=== PATIENT | male | born 1950 | race Hispanic/Latino ===

== ENCOUNTER 2018-09-22 07:09 | Day surgery (SDC) | payer MEDICARE, OTHER ==
[~2018-09-22 07:09] MED LIST: ANCEF/STERILE WATER 2 GM/20 ML 2 GM/20 ML SYRINGE IV NR; NACL 0.9% 1000 ML 1,000 ML IV SCH
[2018-09-22 07:44] LABS: Hemoglobin 11.7 gm/dl (11.8-15.2); Mean Corpuscular HGB Conc 34 % (32-34); Mean Corpuscular Volume 83 fl (84-94); Platelet Count 256 K/mm3 (140-440); Red Blood Count 4.19 M/mm3 (3.65-5.03); Red Cell Distribution Width 14.8 % (13.2-15.2)
[2018-09-22 07:55] LABS: INR 1.05 (0.87-1.13)
[2018-09-22 07:56] LABS: Partial Thromboplastin Time 30.9 Sec. (24.2-36.6)
[2018-09-22] MEDS ORDERED: NACL 0.9% 500 ML 500 ML IV SCH (08:00)
[2018-09-22 08:08] LABS: Calcium 8.9 mg/dL (8.4-10.2)
[2018-09-22] MEDS ORDERED: VERSED ONE (08:29)
[2018-09-22] MEDS ORDERED: SUBLIMAZE ONE (08:30)
[2018-09-22] MEDS ORDERED: NACL 0.9% 250ML 0 ML ONE (08:31)
[2018-09-22] MEDS ORDERED: XYLOCAINE 2% INFILTRATI ONE (08:31)
[2018-09-22] MEDS ORDERED: NACL 0.9% 500 ML IR ONE (08:31)
[2018-09-22] MEDS ORDERED: LEVAQUIN 500MG/100ML 500 MG/100 ML BAG IV ONE (08:31)
[2018-09-22] MEDS ORDERED: LEVAQUIN 500MG/100ML 500 MG/100 ML BAG IV NR (09:00)
[2018-09-22] MEDS ORDERED: XYLOCAINE 1%/ EPI 1:100,000 INFILTRATI ONE (09:44)
--- NOTE | 2018-09-22 09:54 | Short Stay Summary ---
Short Stay Documentation Date of service: 09/22/18 Narrative H&P: 67-year-old male with rectal cancer and permanent left-sided nephrostomy tube with failed right lower quadrant ostomy diversion and right nephrectomy who presents for nephrostomy exchange - History Principal diagnosis: nephrostomy exchange, hydronephrosis Past Medical History: cancer Past Surgical History: bowel surgery, Other (right nephrectomy, cancer surgery) Social history: no significant social history - Allergies and Medications Current Medications: Allergies No Known Allergies Allergy (Verified 05/11/18 10:05) Home Medications Medication Instructions Recorded Confirmed Last Taken Type Amlodipine Besylate [Norvasc] 5 mg PO QDAY 09/22/18 09/22/18 09/21/18 History Nitrofurantoin Macrocrystal 25 mg PO BID 09/22/18 09/22/18 09/21/18 History [Nitrofurantoin] Active Medications Sodium Chloride (Nacl 0.9% 500 Ml) 500 mls @ 50 mls/hr IV DIRECT GRACE Last Admin: 09/22/18 08:40 Dose: 50 mls/hr Documented by: Levofloxacin/Dextrose (Levaquin 500mg/100ml) 500 mg in 100 mls @ 100 mls/hr IV PREOP NR; Protocol Stop: 09/22/18 09:59 Last Admin: 09/22/18 08:43 Dose: 100 mls/hr Documented by: - Physical exam General appearance: no acute distress Lungs: Normal air movement Gastrointestinal: normal - Brief post op/procedure progress note Date of procedure: 09/22/18 Pre-op diagnosis: hydronephrosis requiring nephrostomy exchange Post-op diagnosis: same Procedure: 8 Sami left nephrostomy exchange with nephrostogram Anesthesia: local (with conscious sedation) Surgeon: LUZ ELENA SCHULTZ Estimated blood loss: minimal Condition: stable - Hospital course Hospital course: Ready for discharge - Disposition Condition at discharge: Stable Disposition: DC-01 TO HOME OR SELFCARE - Discharge Diagnoses (1) Hydronephrosis Status: Acute Short Stay Discharge Plan Activity: advance as tolerated Weight Bearing Status: Weight Bear as Tolerated Diet: regular Wound: keep clean and dry Additional Instructions: Nephrostomy changes every 3-4 months Follow up with: MIRIAM RODNEY MD [Primary Care Provider] - 7 Days
--- NOTE | 2018-09-22 09:57 | Operative Report ---
Operative Report Operative Report: EXAM: 1. Nephrostogram through the indwelling left nephrostomy tube. 2. Left 8 Swiss nephrostomy tube exchange DATE: 09/22/18 DRILL RIG OPERATOR HELPER: LUZ ELENA SCHULTZ MD INDICATION: Rectal cancer and ureteral involvement with permanent left-sided nephrostomy tube with failed ostomy and right nephrectomy. MEDICATIONS: Please see nursing report for full details. DEVICES: 8 Swiss nephrostomy tube CONTRAST: Heddler report for full details. PROCEDURE: The risks, benefits, and alternatives were discussed with the patient; written informed consent was obtained. The patient was brought to the angiography suite in satisfactory condition. The patient was placed in a prone position. The tubes were prepped and draped in a sterile fashion. The left nephrostomy tube was evaluated and determined to be intact. There is mild erythema around the tube. 1% lidocaine was injected around the nephrostomy tube for local anesthetic. Contrast was injected through the existing nephrostomy tube confirming position. The nephrostomy tube was cut. 0.035 inch Styles wire could not be passed to the nephrostomy tube. 0.035 inch Glidewire was passed into the renal collecting system. The nephrostomy tube was removed over a wire. A new nephrostomy tube was advanced over the wire into the collecting system. The wire and plastic stiffener were removed under fluoroscopic guidance. [place] loop was formed in the renal pelvis. Contrast was injected confirming position in the renal pelvis. Contrast was then aspirated and saline was injected and aspirated through the collecting system. The catheter was secured with a 2-0 Ethilon. Sterile dressing was applied. The patient tolerated the procedure without issue. The patient was transferred to the OPPU area without issue. FINDINGS: 1. The left sided nephrostogram demonstrated moderate hydronephrosis and hydroureter with the ureter at its mid to distal portion connecting into a curvilinear tubular structure which I suspect is the bowel/ostomy which is nonfunctional. I did not inject hard enough to completely opacified this structure as the patient ready told me his ostomy was nonfunctional. 2. Successful fluoroscopic guided exchange of a left sided 8 Swiss nephrostomy tube. IMPRESSION: Successful nephrostogram and nephrostomy tube exchange of a left sided 8 macedonian nephrostomy tube.
[2018-09-22 11:03] VITALS: BP 138/72
== END 2018-09-22 11:23 | disposition home or self-care (01) ==
LOC: CATHLABREC 07:09
PROVIDERS: ATTEND Radiology Diagnostic Radiology
DX: N13.30 Unspecified hydronephrosis (principal); C20 Malignant neoplasm of rectum; I10 Essential (primary) hypertension; E78.00 Pure hypercholesterolemia, unspecified; Z85.46 Personal history of malignant neoplasm of prostate; Z87.440 Personal history of urinary (tract) infections; Z79.899 Other long term (current) drug therapy; Z79.01 Long term (current) use of anticoagulants; Z87.891 Personal history of nicotine dependence; Z98.890 Other specified postprocedural states; Z80.8 Family history of malignant neoplasm of other organs or systems; Z86.2 Personal history of diseases of the blood and blood-forming organs and certain disorders involving the immune mechanism
CPT/HCPCS: 36415; 50435; 80048; 85027; 85610; 85730; 96365; 99156; 99157; C1729; C1769; J1956; J2250; J3010; J7040; J7050; Q9967

== ENCOUNTER 2019-01-18 06:21 | Day surgery (SDC) | payer MEDICARE, OTHER ==
[2019-01-18 07:00] LABS: Basophils % (Auto) 0.4 % (0.0-1.8); Eosinophils # (Auto) 0.2 K/mm3 (0.0-0.4); Eosinophils % (Auto) 2.8 % (0.0-4.3); Hematocrit 37.4 % (35.5-45.6); Hemoglobin 12.7 gm/dl (11.8-15.2); Lymphocytes # (Auto) 1.4 K/mm3 (1.2-5.4); Lymphocytes % (Auto) 20.1 % (13.4-35.0); Mean Corpuscular HGB Conc 34 % (32-34); Mean Corpuscular Volume 85 fl (84-94); Monocytes # (Auto) 0.6 K/mm3 (0.0-0.8); Monocytes % (Auto) 8.8 % (0.0-7.3); Platelet Count 264 K/mm3 (140-440); Red Blood Count 4.41 M/mm3 (3.65-5.03); Red Cell Distribution Width 13.9 % (13.2-15.2)
[2019-01-18] MEDS ORDERED: NACL 0.9% 500 ML 500 ML IV SCH (07:00)
[2019-01-18 07:10] LABS: INR 1.16 (0.87-1.13); Partial Thromboplastin Time 26.8 Sec. (24.2-36.6)
[2019-01-18 07:36] LABS: Calcium 9.1 mg/dL (8.4-10.2)
--- NOTE | 2019-01-18 08:06 | Short Stay Summary ---
Short Stay Documentation Date of service: 01/18/19 - History Principal diagnosis: left hydronephrosis Past Medical History: cancer (bladder), other Past Surgical History: Other (extensive bladder resections) Social history: no significant social history - Allergies and Medications Current Medications: Allergies No Known Allergies Allergy (Verified 05/11/18 10:05) Home Medications Medication Instructions Recorded Confirmed Last Taken Type Cholecalciferol Vit D3 [Vitamin D3 1,000 unit PO QDAY 01/18/19 01/18/19 01/17/19 History 1,000 UNIT TAB] Lactobacillus Combo No.10 1 each PO BID 01/18/19 01/18/19 01/17/19 History [Probiotic] amLODIPine [Norvasc] 5 mg PO DAILY 01/18/19 01/18/19 01/18/19 05:00 History Active Medications Sodium Chloride (Nacl 0.9% 500 Ml) 500 mls @ 50 mls/hr IV DIRECT GRACE Last Admin: 01/18/19 07:18 Dose: 50 mls/hr Documented by: - Physical exam General appearance: no acute distress Integumentary: no rash, no growths HEENT: Atraumatic Lungs: Normal air movement Breasts: deferred Heart: Regular rate Gastrointestinal: normal Male Genitourinary: deferred Rectal Exam: deferred Extremities: no ischemia Neurological: Normal gait, Normal speech - Brief post op/procedure progress note Date of procedure: 01/18/19 Pre-op diagnosis: left hydronephrosis Post-op diagnosis: same Procedure: Left nephrostogram, left nephrostomy tube exchange Anesthesia: local Surgeon: LUZ ELENA SWEENEY Estimated blood loss: none Pathology: none Condition: stable - Disposition Condition at discharge: Good Disposition: DC-01 TO HOME OR SELFCARE Short Stay Discharge Plan Activity: advance as tolerated Weight Bearing Status: Weight Bear as Tolerated Diet: regular Wound: keep clean and dry, per your surgeon's advice Follow up with: MIRIAM RODNEY MD [Primary Care Provider] - 7 Days
[2019-01-18] MEDS ORDERED: XYLOCAINE 2% INFILTRATI ONE (08:17)
[2019-01-18] MEDS ORDERED: VERSED ONE (08:17)
[2019-01-18] MEDS ORDERED: NACL 0.9% 500 ML IR ONE (08:17)
[2019-01-18] MEDS ORDERED: SUBLIMAZE ONE (08:17)
[2019-01-18] MEDS ORDERED: LEVAQUIN 500MG/100ML 500 MG/100 ML BAG IV ONE (08:18)
--- NOTE | 2019-01-18 09:13 | Operative Report ---
Operative Report Operative Report: Exam: Left-sided nephrostogram, left nephrostomy tube exchange with fluoroscopic guidance Clinical indication: Left hydronephrosis with chronic indwelling left nephrostomy tube Date: 01/18/2019 Procedure: Following an explanation of the risks, benefits and alternatives; written informed consent was obtained. The patient was brought to the angiographic's suite and placed in prone position on the examination table. Initial fluoroscopic images demonstrated appropriate positioning of the patient's indwelling nephrostomy tube. The patient's left back and flank were prepped and draped in the usual sterile fashion. 1% lidocaine was used for anesthesia at the catheter exit site along the tract. Contrast was injected through the indwelling nephrostomy tube. There is been minimal retraction from the renal pelvis with prompt filling of the pelvis and calyces. Minimal hydronephrosis is identified. The fluoroscopy tube was cut to release the pigtail. A 0.035 guidewire was then advanced through the catheter and coiled within the renal pelvis. The catheter was then removed intact. A new 8 Danish ostomy tube was then advanced over the guidewire under fluoroscopy to position the pigtail in the central aspect of the renal pelvis. The guidewire and trocar were removed and the pigtail formed. Contrast was gently injected to document appropriate positioning. The catheter was securely fastened to the skin surface using 2-0 Ethilon suture and a Stayfix device. The catheter was then placed to dependent drainage. Sterile dressings were applied. The patient tolerated the procedure well. There were no immediate post procedure complications. Conscious sedation was performed under the guidance of radiologic nursing. Continuous cardiopulmonary monitoring was utilized. Impression: 1) Left-sided nephrostogram demonstrating minimal left hydronephrosis and appropriate positioning of indwellingnephrostomy tube 2) Fluoroscopic guided exchange of left nephrostomy tube.
[2019-01-18 10:25] VITALS: BP 127/89
== END 2019-01-18 10:00 | disposition home or self-care (01) ==
LOC: CATHLABREC 06:21
PROVIDERS: ATTEND Radiology Diagnostic Radiology
DX: N13.39 Other hydronephrosis (principal); T83.092A Other mechanical complication of nephrostomy catheter, initial encounter; E78.00 Pure hypercholesterolemia, unspecified; I10 Essential (primary) hypertension; Z87.440 Personal history of urinary (tract) infections; Z98.890 Other specified postprocedural states; Z85.51 Personal history of malignant neoplasm of bladder; Z79.899 Other long term (current) drug therapy; Z87.891 Personal history of nicotine dependence; Z86.2 Personal history of diseases of the blood and blood-forming organs and certain disorders involving the immune mechanism; Y83.8 Other surgical procedures as the cause of abnormal reaction of the patient, or of later complication, without mention of misadventure at the time of the procedure; Y92.89 Other specified places as the place of occurrence of the external cause
CPT/HCPCS: 36415; 50435; 80048; 85025; 85610; 85730; 99156; C1729; C1769; J1956; J2250; J3010; J7040; 50432; Q9967

== ENCOUNTER 2019-05-16 06:52 | Day surgery (SDC) | payer MEDICARE, OTHER ==
[2019-05-16] MEDS ORDERED: NACL 0.9% 500 ML 500 ML IV SCH (08:00)
[2019-05-16 08:06] LABS: Basophils % (Auto) 0.6 % (0.0-1.8); Eosinophils # (Auto) 0.2 K/mm3 (0.0-0.4); Hematocrit 38.4 % (35.5-45.6); Hemoglobin 12.7 gm/dl (11.8-15.2); Lymphocytes # (Auto) 1.1 K/mm3 (1.2-5.4); Lymphocytes % (Auto) 21.9 % (13.4-35.0); Mean Corpuscular HGB Conc 33 % (32-34); Mean Corpuscular Volume 87 fl (84-94); Monocytes # (Auto) 0.6 K/mm3 (0.0-0.8); Monocytes % (Auto) 11.2 % (0.0-7.3); Platelet Count 228 K/mm3 (140-440); Red Blood Count 4.42 M/mm3 (3.65-5.03); Red Cell Distribution Width 14.2 % (13.2-15.2)
[2019-05-16 08:17] LABS: INR 1.19 (0.87-1.13)
[2019-05-16 08:31] LABS: Partial Thromboplastin Time 29.7 Sec. (24.2-36.6)
[2019-05-16] MEDS ORDERED: NACL 0.9% 500 ML IR ONE (08:33)
[2019-05-16] MEDS ORDERED: NACL 0.9% 250ML 0 ML ONE (08:34)
[2019-05-16] MEDS ORDERED: ANCEF/STERILE WATER 2 GM/20 ML 2 GM/20 ML SYRINGE IV ONE (08:34)
[2019-05-16] MEDS: XYLOCAINE 1%/ EPI 1:100,000 INFILTRATI ONE ×2 (09:29→09:45)
--- NOTE | 2019-05-16 10:09 | Short Stay Summary ---
Short Stay Documentation Date of service: 05/16/19 Narrative H&P: 68-year-old male with rectal cancer and permanent left-sided nephrostomy tube with failed right lower quadrant ostomy diversion and right nephrectomy who presents for nephrostomy exchange - History Principal diagnosis: Hydronephrosis Past Medical History: cancer, renal failure (CRI) Past Surgical History: bowel surgery, Other (R nephrectromy) - Allergies and Medications Current Medications: Allergies No Known Allergies Allergy (Verified 05/11/18 10:05) Home Medications Medication Instructions Recorded Confirmed Last Taken Type Cholecalciferol Vit D3 [Vitamin D3 1,000 unit PO QDAY 01/18/19 05/16/19 05/15/19 History 1,000 UNIT TAB] Lactobacillus Combo No.10 1 each PO BID 01/18/19 05/16/19 05/15/19 History [Probiotic] amLODIPine [Norvasc] 5 mg PO DAILY 01/18/19 05/16/19 05/15/19 History Amoxicillin/Potassium Clav 1 each PO BID #20 tablet 05/16/19 Unknown Rx [Augmentin 500-125 Tablet] Active Medications Sodium Chloride (Nacl 0.9% 500 Ml) 500 mls @ 50 mls/hr IV DIRECT GRACE Last Admin: 05/16/19 09:29 Dose: 100 mls Documented by: - Physical exam General appearance: no acute distress HEENT: EOMI Lungs: Normal air movement - Brief post op/procedure progress note Date of procedure: 05/16/19 Pre-op diagnosis: Hydronephrosis Post-op diagnosis: same Procedure: Left percutaneous nephrostomy tube exchange Anesthesia: local (w/ conscious sedation) Surgeon: LUZ ELENA SCHULTZ Estimated blood loss: minimal Condition: stable - Hospital course Hospital course: Ready for discharge - Disposition Condition at discharge: Stable Disposition: DC-01 TO HOME OR SELFCARE - Discharge Diagnoses (1) Rectal cancer Status: Chronic (2) S/p nephrectomy Status: Chronic (3) Complication of Ileal conduit Status: Chronic (4) Hydronephrosis Status: Chronic Short Stay Discharge Plan Activity: advance as tolerated Weight Bearing Status: Weight Bear as Tolerated Diet: regular Wound: keep clean and dry, other (take antibiotics for mild exit site infection) Follow up with: MIRIAM RODNEY MD [Primary Care Provider] - 7 Days Prescriptions: Amoxicillin/Potassium Clav [Augmentin 500-125 Tablet] 1 each PO BID #20 tablet
--- NOTE | 2019-05-16 10:15 | Operative Report ---
Operative Report Operative Report: EXAM: 1. Nephrostogram through the indwelling left nephrostomy tube. 2. Left 8 Welsh nephrostomy tube exchange DATE: 05/16/19 FREEZING ROOM WORKER: LUZ ELENA SCHULTZ MD INDICATION: Rectal cancer and ureteral involvement with permanent left-sided nephrostomy tube with failed ostomy and right nephrectomy. MEDICATIONS: Please see nursing report for full details. DEVICES: 8 Welsh nephrostomy tube CONTRAST: Gas Turbine Mechanic report for full details. PROCEDURE: The risks, benefits, and alternatives were discussed with the patient; written informed consent was obtained. The patient was brought to the angiography suite in satisfactory condition. The patient was placed in a prone position. The tubes were prepped and draped in a sterile fashion. The left nephrostomy tube was evaluated and determined to be intact. There is mild erythema around the tube. 1% lidocaine was injected around the nephrostomy tube for local anesthetic. Contrast was injected through the existing nephrostomy tube confirming position. The nephrostomy tube was cut. 0.035 inch Styles wire could not be passed to the nephrostomy tube. 0.035 inch Glidewire was passed into the renal collecting system. The nephrostomy tube was removed over a wire. A new nephrostomy tube was advanced over the wire into the collecting system. The wire and plastic stiffener were removed under fluoroscopic guidance. Mode loop was formed in the renal pelvis. Contrast was injected confirming position in the renal pelvis. Contrast was then aspirated and saline was injected and aspirated through the collecting system. The catheter was secured with a 2-0 Ethilon. Sterile dressing was applied. The patient tolerated the procedure without issue. The patient was transferred to the OPPU area without issue. FINDINGS: 1. The left sided nephrostogram demonstrated moderate hydronephrosis and hydroureter with the ureter at its mid to distal portion connecting into a curvilinear tubular structure which I suspect is the bowel/ostomy or part of the other ureter which may not have been resected. 2. Successful fluoroscopic guided exchange of a left sided 8 Welsh nephrostomy tube. IMPRESSION: Successful nephrostogram and nephrostomy tube exchange of a left sided 8 croatian nephrostomy tube.
[2019-05-16 11:03] VITALS: BP 143/77
== END 2019-05-16 10:35 | disposition home or self-care (01) ==
LOC: CATHLABREC 06:52
PROVIDERS: ATTEND Radiology Diagnostic Radiology
DX: C20 Malignant neoplasm of rectum (principal); N13.39 Other hydronephrosis; E78.00 Pure hypercholesterolemia, unspecified; I10 Essential (primary) hypertension; Z85.46 Personal history of malignant neoplasm of prostate; Z87.440 Personal history of urinary (tract) infections; Z79.899 Other long term (current) drug therapy; Z87.891 Personal history of nicotine dependence; Z90.5 Acquired absence of kidney; Z98.890 Other specified postprocedural states; Z86.2 Personal history of diseases of the blood and blood-forming organs and certain disorders involving the immune mechanism
CPT/HCPCS: 36415; 50435; 80048; 85025; 85610; 85730; C1729; C1769; J0690; J7040; J7050; Q9967

== ENCOUNTER 2019-09-11 07:48 | Day surgery (SDC) | payer MEDICARE, OTHER ==
[2019-09-11 08:35] LABS: Basophils % (Auto) 0.5 % (0.0-1.8); Eosinophils # (Auto) 0.2 K/mm3 (0.0-0.4); Eosinophils % (Auto) 2.2 % (0.0-4.3); Hematocrit 33.3 % (35.5-45.6); Lymphocytes # (Auto) 1.5 K/mm3 (1.2-5.4); Lymphocytes % (Auto) 15.3 % (13.4-35.0); Mean Corpuscular HGB Conc 33 % (32-34); Mean Corpuscular Volume 83 fl (84-94); Monocytes # (Auto) 0.9 K/mm3 (0.0-0.8); Monocytes % (Auto) 9.4 % (0.0-7.3); Platelet Count 358 K/mm3 (140-440); Red Blood Count 4.02 M/mm3 (3.65-5.03)
[2019-09-11 08:44] LABS: Calcium 9.4 mg/dL (8.4-10.2)
[2019-09-11 08:47] LABS: INR 1.24 (0.87-1.13)
[2019-09-11 08:48] LABS: Partial Thromboplastin Time 35.4 Sec. (24.2-36.6)
[2019-09-11] MEDS ORDERED: SODIUM CHLORIDE 0.9% 500 ML 500 ML ONE (08:51)
[2019-09-11] MEDS ORDERED: SODIUM CHLORIDE 0.9% 500 ML 500 ML IV SCH (09:00)
[2019-09-11] MEDS ORDERED: SODIUM CHLORIDE IRRI 500 ML 500 ML IR ONE (10:02)
--- NOTE | 2019-09-11 10:08 | Short Stay Summary ---
Short Stay Documentation Date of service: 09/11/19 Narrative H&P: 68-year-old male with rectal cancer and permanent left-sided nephrostomy tube with failed right lower quadrant ostomy diversion and right nephrectomy who presents for nephrostomy exchange - History Principal diagnosis: Hydronephrosis Past Medical History: cancer, renal failure (CRI) Past Surgical History: bowel surgery, Other (R nephrectromy) - Allergies and Medications Current Medications - History Principal diagnosis: Hydronephrosis Social history: - Allergies and Medications Current Medications: Allergies No Known Allergies Allergy (Verified 05/11/18 10:05) Home Medications Medication Instructions Recorded Confirmed Last Taken Type Cholecalciferol Vit D3 [Vitamin D3 1,000 unit PO QDAY 01/18/19 09/11/19 09/10/19 History 1,000 UNIT TAB] 1000 units Lactobacillus Combo No.10 1 each PO BID 01/18/19 09/11/19 09/10/19 History [Probiotic] 1 amLODIPine 5 mg PO DAILY 01/18/19 09/11/19 09/10/19 History 5 mg Active Medications Sodium Chloride (Nacl 0.9% 500 Ml) 500 mls @ 50 mls/hr IV DIRECT GRACE - Physical exam General appearance: no acute distress Lungs: Normal air movement Gastrointestinal: normal - Brief post op/procedure progress note Date of procedure: 09/11/19 Pre-op diagnosis: Hydronephrosis Post-op diagnosis: same Procedure: PCN exchange, L side Anesthesia: local (w/ conscious sedation) Surgeon: LUZ ELENA SCHULTZ Estimated blood loss: minimal Condition: stable - Hospital course Hospital course: Ready for discharge - Disposition Condition at discharge: Good Disposition: DC-01 TO HOME OR SELFCARE - Discharge Diagnoses (1) Complication of Ileal conduit Status: Chronic (2) Hydronephrosis Status: Chronic (3) Rectal cancer Status: Chronic (4) S/p nephrectomy Status: Chronic Short Stay Discharge Plan Activity: advance as tolerated Weight Bearing Status: Weight Bear as Tolerated Diet: regular Wound: keep clean and dry Follow up with: MIRIAM RODNEY MD [Primary Care Provider] - 7 Days
[2019-09-11] MEDS: fentaNYL 100 MCG/2 ML INJ ONE ×2 (10:25→10:32)
[2019-09-11] MEDS: LIDOCAINE 1%/EPINEPHRINE 1:100,000 VIAL (20 ML) INFILTRATI ONE ×2 (10:26→10:34)
[2019-09-11] MEDS: MIDAZOLAM 2 MG/2 ML INJ ONE ×2 (10:26→10:32)
[2019-09-11 11:31] VITALS: BP 118/72
--- NOTE | 2019-09-11 12:46 | Operative Report ---
Operative Report Operative Report: EXAM: 1. Nephrostogram through the indwelling left nephrostomy tube. 2. Left 8 Wallisian nephrostomy tube exchange DATE: 09/11/2019 INSIDE SALES ACCOUNT MANAGER: LUZ ELENA SCHULTZ MD INDICATION: Rectal cancer and ureteral involvement with permanent left-sided nephrostomy tube with failed ostomy and right nephrectomy. MEDICATIONS: Please see nursing report for full details. DEVICES: 8 Wallisian nephrostomy tube CONTRAST: Roundhouse Supervisor report for full details. PROCEDURE: The risks, benefits, and alternatives were discussed with the patient; written informed consent was obtained. The patient was brought to the angiography suite in satisfactory condition. The patient was placed in a prone position. The tubes were prepped and draped in a sterile fashion. The left nephrostomy tube was evaluated and determined to be intact. 1% lidocaine was injected around the nephrostomy tube for local anesthetic. Contrast was injected through the existing nephrostomy tube confirming position. The nephrostomy tube was cut. 0.035 inch Styles wire was passed into the renal collecting system. The nephrostomy tube was removed over a wire. A new nephrostomy tube was advanced over the wire into the collecting system. The wire and plastic stiffener were removed under fluoroscopic guidance. [place] loop was formed in the renal pelvis. Contrast was injected confirming position in the renal pelvis. Contrast was then aspirated and saline was injected and aspirated through the collecting system. The catheter was secured with a 2-0 Ethilon. Sterile dressing was applied. The patient tolerated the procedure without issue. The patient was transferred to the OPPU area without issue. FINDINGS: 1. The left sided nephrostogram demonstrated moderate hydronephrosis. 2. Successful fluoroscopic guided exchange of a left sided 8 Wallisian nephrostomy tube. IMPRESSION: Successful nephrostogram and nephrostomy tube exchange of a left sided 8 cook islander nephrostomy tube.
== END 2019-09-11 12:00 | disposition home or self-care (01) ==
LOC: CATHLABREC 07:48
PROVIDERS: ATTEND Radiology Diagnostic Radiology
DX: N13.2 Hydronephrosis with renal and ureteral calculous obstruction (principal); C20 Malignant neoplasm of rectum; E78.00 Pure hypercholesterolemia, unspecified; I10 Essential (primary) hypertension; Z79.899 Other long term (current) drug therapy; Z72.89 Other problems related to lifestyle; Z87.440 Personal history of urinary (tract) infections; Z98.890 Other specified postprocedural states
CPT/HCPCS: 36415; 50435; 80048; 85025; 85610; 85730; C1729; C1769; J1956; J2250; J3010; J7040; Q9967

== ENCOUNTER 2020-06-10 06:13 | Day surgery (SDC) | payer MEDICARE, OTHER ==
[2020-06-10 07:36] LABS: Basophils % (Auto) 0.4 % (0.0-1.8); Eosinophils # (Auto) 0.2 K/mm3 (0.0-0.4); Eosinophils % (Auto) 2.9 % (0.0-4.3); Hematocrit 36.8 % (35.5-45.6); Lymphocytes # (Auto) 1.7 K/mm3 (1.2-5.4); Lymphocytes % (Auto) 20.8 % (13.4-35.0); Mean Corpuscular HGB Conc 33 % (32-34); Mean Corpuscular Volume 86 fl (84-94); Monocytes # (Auto) 0.7 K/mm3 (0.0-0.8); Monocytes % (Auto) 8.5 % (0.0-7.3); Platelet Count 289 K/mm3 (140-440); Red Blood Count 4.26 M/mm3 (3.65-5.03); Red Cell Distribution Width 14.6 % (13.2-15.2)
[2020-06-10 07:46] LABS: INR 1.19 (0.87-1.13)
[2020-06-10 07:47] LABS: Calcium 9.3 mg/dL (8.4-10.2)
[2020-06-10] MEDS ORDERED: SODIUM CHLORIDE IRRI 500 ML 500 ML IR ONE (08:00)
[2020-06-10] MEDS ORDERED: MIDAZOLAM 2 MG/2 ML INJ ONE (08:00)
[2020-06-10] MEDS ORDERED: fentaNYL 100 MCG/2 ML INJ ONE (08:01)
[2020-06-10] MEDS ORDERED: LIDOCAINE 1%/EPINEPHRINE 1:100,000 VIAL (20 ML) INFILTRATI ONE (08:01)
[2020-06-10] MEDS ORDERED: SODIUM CHLORIDE 0.9% 500 ML 500 ML ONE (08:21)
[2020-06-10] MEDS ORDERED: SODIUM CHLORIDE 0.9% 500 ML 500 ML IV SCH (09:00)
[2020-06-10 10:14] VITALS: BP 144/80
--- NOTE | 2020-06-10 11:38 | Short Stay Summary ---
Short Stay Documentation Date of service: 06/10/20 Narrative H&P: 68-year-old male with rectal cancer and permanent left-sided nephrostomy tube with failed right lower quadrant ostomy diversion and right nephrectomy who presents for nephrostomy exchange - History Principal diagnosis: Hydronephrosis Past Medical History: cancer, renal failure (CRI) Past Surgical History: bowel surgery, Other (R nephrectromy) - Allergies and Medications Current Medications - History Principal diagnosis: Hydronephrosis Social history: - History Principal diagnosis: Hydronephrosis - Allergies and Medications Current Medications: Allergies No Known Allergies Allergy (Verified 05/11/18 10:05) Home Medications Medication Instructions Recorded Confirmed Last Taken Type Cholecalciferol Vit D3 [Vitamin D3 400 mg PO QDAY 01/18/19 06/10/20 06/09/20 History 1,000 UNIT TAB] 1 tab Lactobacillus Combo No.10 1 each PO BID 01/18/19 06/10/20 06/09/20 History [Probiotic] 1 cap amLODIPine 5 mg PO DAILY 01/18/19 06/10/20 06/09/20 History 5 mg Sodium Bicarbonate 650 mg PO BID 06/10/20 06/10/20 06/09/20 History 650 mg - Physical exam General appearance: no acute distress Lungs: Normal air movement Gastrointestinal: normal Extremities: normal temperature, normal color - Brief post op/procedure progress note Date of procedure: 06/10/20 Pre-op diagnosis: Hydronephrosis Post-op diagnosis: same Procedure: Nephrostomy tube exchange Anesthesia: local Surgeon: LUZ ELENA SCHULTZ Estimated blood loss: minimal Condition: stable - Hospital course Hospital course: Tolerated procedure well. Ready for discharge. - Disposition Condition at discharge: Good Disposition: DC-01 TO HOME OR SELFCARE - Discharge Diagnoses (1) Complication of Ileal conduit Status: Chronic (2) Hydronephrosis Status: Chronic (3) Rectal cancer Status: Chronic (4) S/p nephrectomy Status: Chronic Short Stay Discharge Plan Activity: advance as tolerated Weight Bearing Status: Weight Bear as Tolerated Diet: regular Wound: keep clean and dry Follow up with: MIRIAM RODNEY MD [Primary Care Provider] - 7 Days
--- NOTE | 2020-06-10 11:39 | Operative Report ---
Operative Report Operative Report: EXAM: 1. Nephrostogram through the indwelling left nephrostomy tube. 2. Left 8 [place] nephrostomy tube exchange DATE: 06/10/2020 ENVIRONMENTAL FIELD TEAM MEMBER: LUZ ELENA SCHULTZ MD INDICATION: Rectal cancer and ureteral involvement with permanent left-sided nephrostomy tube with failed ostomy and right nephrectomy. MEDICATIONS: Please see nursing report for full details. DEVICES: 8 [place] nephrostomy tube CONTRAST: Transition Rn report for full details. PROCEDURE: The risks, benefits, and alternatives were discussed with the patient; written informed consent was obtained. The patient was brought to the angiography suite in satisfactory condition. The patient was placed in a prone position. The tube was prepped and draped in a sterile fashion. The left nephrostomy tube was evaluated and determined to be intact. The suture was not intact. 1% lidocaine was injected around the nephrostomy tube for local anesthetic. Contrast was injected through the existing nephrostomy tube confirming position. The nephrostomy tube was cut. 0.035 inch stiff Glidewire was passed into the renal collecting system. The nephrostomy tube was removed over a wire. A new nephrostomy tube was advanced over the wire into the collecting system. The wire and plastic stiffener were removed under fluoroscopic guidance. [place] loop was formed in the renal pelvis. Contrast was injected confirming position in the renal pelvis. Contrast was then aspirated and saline was injected and aspirated through the collecting system. The catheter was secured with a 2-0 Ethilon. Sterile dressing was applied. The patient tolerated the procedure without issue. The patient was transferred to the OPPU area without issue. FINDINGS: 1. The left sided nephrostogram demonstrated moderate hydronephrosis. 2. Successful fluoroscopic guided exchange of a left sided 8 [place] nephrostomy tube. IMPRESSION: Successful nephrostogram and nephrostomy tube exchange of a left sided 8 malian nephrostomy tube.
== END 2020-06-10 11:05 | disposition home or self-care (01) ==
LOC: CATHLABREC 06:13
PROVIDERS: ATTEND Radiology Diagnostic Radiology
DX: N13.39 Other hydronephrosis (principal); C20 Malignant neoplasm of rectum; N99.528 Other complication of incontinent external stoma of urinary tract; E78.00 Pure hypercholesterolemia, unspecified; I10 Essential (primary) hypertension; Z85.46 Personal history of malignant neoplasm of prostate; Z79.899 Other long term (current) drug therapy; Z87.891 Personal history of nicotine dependence; Z87.440 Personal history of urinary (tract) infections; Z98.890 Other specified postprocedural states
CPT/HCPCS: 36415; 50435; 80048; 85025; 85610; 85730; 96365; C1729; C1769; J1956; J7040; J2250; J3010; Q9967

== ENCOUNTER 2020-11-11 06:28 | Day surgery (SDC) | payer MEDICARE, OTHER ==
[2020-11-11 07:25] LABS: Hematocrit 35.7 % (35.5-45.6); Hemoglobin 12.1 gm/dl (11.8-15.2); Mean Corpuscular HGB Conc 34 % (32-34); Mean Corpuscular Volume 88 fl (84-94); Platelet Count 219 K/mm3 (140-440); Red Blood Count 4.04 M/mm3 (3.65-5.03); Red Cell Distribution Width 13.9 % (13.2-15.2)
[2020-11-11 07:45] LABS: Calcium 7.9 mg/dL (8.4-10.2)
[2020-11-11] MEDS: SODIUM CHLORIDE 0.9% 500 ML 500 ML IV SCH ×2 (08:00→08:25)
[2020-11-11] MEDS ORDERED: SODIUM CHLORIDE IRRI 500 ML 500 ML IR ONE (08:11)
[2020-11-11] MEDS ORDERED: SODIUM CHLORIDE 0.9% 500 ML 0 ML ONE (08:11)
[2020-11-11] MEDS ORDERED: ceFAZolin/Water 2 GM/20 ML 0 GM/0 ML SYRINGE IV ONE (08:12)
[2020-11-11] MEDS ORDERED: MIDAZOLAM 2 MG/2 ML INJ ONE (08:12)
[2020-11-11] MEDS ORDERED: fentaNYL 100 MCG/2 ML INJ ONE (08:12)
[2020-11-11] MEDS: LIDOCAINE 2%/EPINEPHRINE 1:100,000 VIAL (20 ML) INFILTRATI SCH ×2 (09:13→09:19)
[2020-11-11] MEDS ORDERED: SILVER NITRATE APPLICATOR 1 EA TP ONE ×2 (09:20)
--- NOTE | 2020-11-11 09:38 | Short Stay Summary ---
Short Stay Documentation Date of service: 11/11/20 Narrative H&P: 68-year-old male with rectal cancer and permanent left-sided nephrostomy tube with failed right lower quadrant ostomy diversion and right nephrectomy who presents for nephrostomy exchange - History Principal diagnosis: Hydronephrosis Past Medical History: cancer, renal failure (CRI) Past Surgical History: bowel surgery, Other (R nephrectromy) - History H&P: dictated - Allergies and Medications Current Medications: Allergies No Known Allergies Allergy (Verified 05/11/18 10:05) Home Medications Medication Instructions Recorded Confirmed Last Taken Type Cholecalciferol Vit D3 [Vitamin D3 400 mg PO QDAY 01/18/19 11/11/20 11/10/20 History 1,000 UNIT TAB] 400 mg Lactobacillus Combo No.10 1 each PO BID 01/18/19 11/11/20 11/10/20 History [Probiotic] 1 tab amLODIPine 5 mg PO DAILY 01/18/19 11/11/20 11/10/20 History 5 mg Sodium Bicarbonate 650 mg PO BID 06/10/20 11/11/20 11/10/20 History 650 mg calcitrioL [Rocaltrol] 0.25 mcg PO 3XW 11/11/20 11/11/20 11/08/20 History 0.25mcg Active Medications Sodium Chloride (Nacl 0.9% 500 Ml) 500 mls @ 50 mls/hr IV DIRECT GRACE Last Admin: 11/11/20 08:25 Dose: 50 mls Documented by: Lidocaine/Epinephrine (Lidocaine 2%/Epinephrine 1:100,000 Vial (20 Ml)) 20 ml INFILTRATI ONCE GRACE Stop: 11/11/20 15:00 Last Admin: 11/11/20 09:19 Dose: 10 ml Documented by: - Physical exam General appearance: no acute distress HEENT: Mucous membr. moist/pink Lungs: Normal air movement Gastrointestinal: normal Extremities: normal temperature, normal color - Brief post op/procedure progress note Date of procedure: 11/11/20 Pre-op diagnosis: Hydronephrosis Post-op diagnosis: same Procedure: Left nephrostomy tube exchange Silver nitrate cauterization of granulation tissue Anesthesia: local Surgeon: LUZ ELENA SCHULTZ Estimated blood loss: minimal Condition: stable - Hospital course Hospital course: Ready for discharge - Disposition Condition at discharge: Stable Disposition: DC- TO HOME OR SELFCARE - Discharge Diagnoses (1) Complication of Ileal conduit Status: Chronic (2) Hydronephrosis Status: Chronic (3) Rectal cancer Status: Chronic (4) S/p nephrectomy Status: Chronic Short Stay Discharge Plan Activity: advance as tolerated Weight Bearing Status: Weight Bear as Tolerated Diet: renal Wound: keep clean and dry Follow up with: MIRIAM RODNEY MD [Primary Care Provider] - 7 Days
--- NOTE | 2020-11-11 09:41 | Operative Report ---
Operative Report Operative Report: EXAM: 1. Nephrostogram through the indwelling left nephrostomy tube. 2. Left 8 Welsh nephrostomy tube exchange 3. Silver nitrate cauterization of granulation tissue DATE: 11/11/2020 TECHNICAL ASST: LUZ ELENA SCHULTZ MD INDICATION: Rectal cancer and ureteral involvement with permanent left-sided nephrostomy tube with failed ostomy and right nephrectomy. MEDICATIONS: Please see nursing report for full details. DEVICES: 8 Welsh nephrostomy tube CONTRAST: Electrification Adviser report for full details. PROCEDURE: The risks, benefits, and alternatives were discussed with the patient; written informed consent was obtained. The patient was brought to the angiography suite in satisfactory condition. The patient was placed in a prone position. The tube was prepped and draped in a sterile fashion. The left nephrostomy tube was evaluated and determined to be intact. The suture was not intact. 1% lidocaine was injected around the nephrostomy tube for local anesthetic. Contrast was injected through the existing nephrostomy tube confirming position. The nephrostomy tube was cut. 0.035 inch [place] wire was attempted to be passed through the nephrostomy tube that was unsuccessful. Therefore a 0.035 inch Glidewire was passed into the renal collecting system. The nephrostomy tube was removed over a wire. A new nephrostomy tube was advanced over the wire into the collecting system. The wire and plastic stiffener were removed under fluoroscopic guidance. [place] loop was formed in the renal pelvis. Contrast was injected confirming position in the renal pelvis. Contrast was then aspirated and saline was injected and aspirated through the collecting system. The catheter was secured with a 2-0 Ethilon. There was hypergranulation tissue at the nephrostomy tube site. The patient had previously complained that the area had bled during bandage placements. Silver nitrate was used to cauterize the hypergranulation tissue and this successfully removed part of the hypergranulation tissue. Sterile dressing was applied. The patient tolerated the procedure without issue. The patient was transferred to the OPPU area without issue. FINDINGS: 1. The left sided nephrostogram demonstrated moderate hydronephrosis. 2. Successful fluoroscopic guided exchange of a left sided 8 Welsh nephrostomy tube. IMPRESSION: Successful nephrostogram and nephrostomy tube exchange of a left sided 8 cost[place]ican nephrostomy tube. Successful silver nitrate application to hypergranulation tissue at the left nephrostomy tube site.
[2020-11-11 09:55] VITALS: BP 116/88
[2020-11-11 10:47] LABS: INR 1.29 (0.87-1.13)
[2020-11-11 10:48] LABS: Partial Thromboplastin Time 31.2 Sec. (24.2-36.6)
== END 2020-11-11 10:30 | disposition home or self-care (01) ==
LOC: CATHLABREC 06:28
PROVIDERS: ATTEND Radiology Diagnostic Radiology
DX: C20 Malignant neoplasm of rectum (principal); N13.30 Unspecified hydronephrosis; N99.528 Other complication of incontinent external stoma of urinary tract; E78.00 Pure hypercholesterolemia, unspecified; I10 Essential (primary) hypertension; D64.9 Anemia, unspecified; Z87.440 Personal history of urinary (tract) infections; Z98.890 Other specified postprocedural states; Z79.899 Other long term (current) drug therapy; Z87.891 Personal history of nicotine dependence; Z95.0 Presence of cardiac pacemaker; Z85.46 Personal history of malignant neoplasm of prostate
CPT/HCPCS: 36415; 50435; 80048; 85027; 85610; 85730; C1729; C1769; J1956; J0690; J2250; J3010; J7040; Q9967

== ENCOUNTER 2021-03-17 08:54 | Day surgery (SDC) | payer MEDICARE, OTHER ==
[2021-03-17 09:58] LABS: Hematocrit 38.2 % (35.5-45.6); Mean Corpuscular HGB Conc 34 % (32-34); Mean Corpuscular Volume 89 fl (84-94); Platelet Count 231 K/mm3 (140-440); Red Blood Count 4.31 M/mm3 (3.65-5.03); Red Cell Distribution Width 14.2 % (13.2-15.2)
[2021-03-17] MEDS ORDERED: SODIUM CHLORIDE 0.9% 500 ML 500 ML IV SCH (10:00)
[2021-03-17 10:13] LABS: Calcium 9.7 mg/dL (8.4-10.2)
[2021-03-17 10:17] LABS: INR 1.13 (0.87-1.13)
[2021-03-17 10:18] LABS: Partial Thromboplastin Time 31.5 Sec. (24.2-36.6)
[2021-03-17] MEDS ORDERED: SODIUM CHLORIDE IRRI 500 ML 500 ML IR ONE (11:04)
[2021-03-17] MEDS: LIDOCAINE 1%/EPINEPHRINE 1:100,000 VIAL (20 ML) INFILTRATI ONE ×2 (11:22→11:50)
[2021-03-17] MEDS ORDERED: BENZOCAINE 20% TOP SPRAY 0.5 ML UNIT DOSE MM ONE (12:12)
--- NOTE | 2021-03-17 12:49 | Short Stay Summary ---
Short Stay Documentation Date of service: 03/17/21 Narrative H&P: 8-year-old male with rectal cancer and permanent left-sided nephrostomy tube with failed right lower quadrant ostomy diversion and right nephrectomy who presents for nephrostomy exchange - History Principal diagnosis: Hydronephrosis Past Medical History: cancer, renal failure (CRI) Past Surgical History: bowel surgery, Other (R nephrectromy) - Allergies and Medications Current Medications: Allergies No Known Allergies Allergy (Verified 05/11/18 10:05) Home Medications Medication Instructions Recorded Confirmed Last Taken Type Cholecalciferol Vit D3 [Vitamin D3 400 mg PO QDAY 01/18/19 03/17/21 03/16/21 History 1,000 UNIT TAB] Lactobacillus Combo No.10 1 each PO BID 01/18/19 03/17/21 03/16/21 History [Probiotic] amLODIPine 5 mg PO DAILY 01/18/19 03/17/21 03/16/21 History Sodium Bicarbonate 650 mg PO BID 06/10/20 03/17/21 03/16/21 History calcitrioL [Rocaltrol] 0.25 mcg PO 3XW 11/11/20 03/17/21 03/16/21 History Active Medications Sodium Chloride (Nacl 0.9% 500 Ml) 500 mls @ 50 mls/hr IV DIRECT GRACE - Physical exam General appearance: no acute distress Lungs: Normal air movement Gastrointestinal: normal, other (Clear urine in bag.) - Brief post op/procedure progress note Date of procedure: 03/17/21 Pre-op diagnosis: Hydronephrosis Post-op diagnosis: same Procedure: Left nephrostomy tube exchange Anesthesia: local Surgeon: LUZ ELENA SCHULTZ Estimated blood loss: minimal Condition: stable - Hospital course Hospital course: Ready for discharge. - Disposition Condition at discharge: Stable Disposition: 01 HOME / SELF CARE / HOMELESS - Discharge Diagnoses (1) Complication of Ileal conduit Status: Chronic (2) Hydronephrosis Status: Chronic (3) Rectal cancer Status: Chronic (4) S/p nephrectomy Status: Chronic Short Stay Discharge Plan Activity: advance as tolerated Weight Bearing Status: Weight Bear as Tolerated Diet: regular Wound: keep clean and dry Follow up with: MIRIAM RODNEY MD [Primary Care Provider] - 7 Days
--- NOTE | 2021-03-17 12:49 | Operative Report ---
Operative Report Operative Report: EXAM: 1. Nephrostogram through the indwelling left nephrostomy tube. 2. Left 8 Cypriot nephrostomy tube exchange DATE: 03/17/2021 FRAME OPERATOR: LUZ ELENA SCHULTZ MD INDICATION: Rectal cancer and ureteral involvement with permanent left-sided nephrostomy tube with failed ostomy and right nephrectomy. MEDICATIONS: Please see nursing report for full details. DEVICES: 8 Cypriot nephrostomy tube CONTRAST: Youth Career Specialist report for full details. PROCEDURE: The risks, benefits, and alternatives were discussed with the patient; written informed consent was obtained. The patient was brought to the angiography suite in satisfactory condition. The patient was placed in a prone position. The tube was prepped and draped in a sterile fashion. The left nephrostomy tube was evaluated and determined to be intact. The suture was not intact. 1% lidocaine was injected around the nephrostomy tube for local anesthetic. Contrast was injected through the existing nephrostomy tube confirming position. The nephrostomy tube was cut. 0.035 inch [place] wire was attempted to be passed through the nephrostomy tube that was unsuccessful. Therefore a 0.035 inch Glidewire was passed into the renal collecting system. The nephrostomy tube was removed over a wire. A new nephrostomy tube was advanced over the wire into the collecting system. The wire and plastic stiffener were removed under fluoroscopic guidance. [place] loop was formed in the renal pelvis. Contrast was injected confirming position in the renal pelvis. Contrast was then aspirated and saline was injected and aspirated through the collecting system. The catheter was secured with a 2-0 Ethilon. Sterile dressing was applied. The patient tolerated the procedure without issue. The patient was transferred to the OPPU area without issue. FINDINGS: 1. The left sided nephrostogram demonstrated mild hydronephrosis. 2. Successful fluoroscopic guided exchange of a left sided 8 Cypriot nephrostomy tube. IMPRESSION: Successful nephrostogram and nephrostomy tube exchange of a left sided 8 citizen of [place] nephrostomy tube.
[2021-03-17 12:53] VITALS: BP 138/80
== END 2021-03-17 13:12 | disposition home or self-care (01) ==
LOC: CATHLABREC 08:54
PROVIDERS: ATTEND Radiology Diagnostic Radiology
DX: N20.0 Calculus of kidney (principal); N13.0 Hydronephrosis with ureteropelvic junction obstruction; C20 Malignant neoplasm of rectum; I10 Essential (primary) hypertension; E78.00 Pure hypercholesterolemia, unspecified; Z79.899 Other long term (current) drug therapy; Z72.89 Other problems related to lifestyle; Z98.890 Other specified postprocedural states
CPT/HCPCS: 36415; 50435; 80048; 85027; 85610; 85730; C1729; C1769; J1956; J7040; Q9967

== ENCOUNTER 2021-09-01 07:18 | Day surgery (SDC) | payer MEDICARE, OTHER ==
[2021-09-01 08:13] LABS: Basophils % (Auto) 0.4 % (0.0-1.8); Eosinophils # (Auto) 0.2 K/mm3 (0.0-0.4); Hematocrit 38.1 % (35.5-45.6); Hemoglobin 12.5 gm/dl (11.8-15.2); Lymphocytes # (Auto) 1.2 K/mm3 (1.2-5.4); Lymphocytes % (Auto) 15.5 % (13.4-35.0); Mean Corpuscular HGB Conc 33 % (32-34); Mean Corpuscular Volume 86 fl (84-94); Monocytes # (Auto) 0.6 K/mm3 (0.0-0.8); Monocytes % (Auto) 7.7 % (0.0-7.3); Platelet Count 289 K/mm3 (140-440); Red Blood Count 4.43 M/mm3 (3.65-5.03); Red Cell Distribution Width 14.2 % (13.2-15.2)
[2021-09-01 08:23] LABS: Calcium 10.6 mg/dL (8.4-10.2); INR 1.06 (0.87-1.13)
[2021-09-01 08:24] LABS: Partial Thromboplastin Time 37.6 Sec. (24.2-36.6)
[2021-09-01] MEDS ORDERED: SODIUM CHLORIDE IRRI 500 ML 500 ML IR ONE (08:25)
[2021-09-01] MEDS ORDERED: LIDOCAINE 1%/EPINEPHRINE 1:100,000 VIAL (20 ML) INFILTRATI ONE ×2 (08:27→10:08)
[2021-09-01] MEDS: SODIUM CHLORIDE 0.9% 500 ML 500 ML IV SCH ×2 (08:46→10:12)
--- NOTE | 2021-09-01 10:55 | Short Stay Summary ---
Short Stay Documentation Date of service: 09/01/21 Narrative H&P: 70-year-old male with rectal cancer and permanent left-sided nephrostomy tube with failed right lower quadrant ostomy diversion and right nephrectomy who presents for nephrostomy exchange. - History Principal diagnosis: Hydronephrosis Past Medical History: cancer, renal failure (CRI) Past Surgical History: bowel surgery, Other (R nephrectromy) - Allergies and Medications Current Medications: - History Principal diagnosis: hydronephrosis - Allergies and Medications Current Medications: Allergies No Known Allergies Allergy (Verified 05/11/18 10:05) Home Medications Medication Instructions Recorded Confirmed Last Taken Type Cholecalciferol Vit D3 [Vitamin D3 400 mg PO QDAY 01/18/19 09/01/21 03/16/21 History 1,000 UNIT TAB] Lactobacillus Combo No.10 1 each PO BID 01/18/19 09/01/21 08/31/21 History [Probiotic] 1 tab amLODIPine 5 mg PO DAILY 01/18/19 03/17/21 08/31/21 History 5 mg Sodium Bicarbonate 650 mg PO TID 06/10/20 09/01/21 08/31/21 History 650 mg calcitrioL [Rocaltrol] 0.25 mcg PO BID 11/11/20 09/01/21 08/31/21 History 025 mcg Active Medications Sodium Chloride (Nacl 0.9% 500 Ml) 500 mls @ 50 mls/hr IV DIRECT GRACE Stop: 09/01/21 18:00 Last Admin: 09/01/21 10:12 Dose: 50 mls/hr - Physical exam General appearance: no acute distress Lungs: Normal air movement Heart: Regular rate Gastrointestinal: normal Extremities: normal temperature, normal color - Brief post op/procedure progress note Date of procedure: 09/01/21 Pre-op diagnosis: Hydronephrosis Post-op diagnosis: same Procedure: L nephrostomy tube exchange Anesthesia: local Surgeon: LUZ ELENA SCHULTZ Estimated blood loss: minimal Condition: stable - Hospital course Hospital course: Ready for discharge. - Disposition Condition at discharge: Stable Disposition: 01 HOME / SELF CARE / HOMELESS - Discharge Diagnoses (1) Complication of Ileal conduit Status: Chronic (2) Hydronephrosis Status: Chronic (3) Rectal cancer Status: Chronic (4) S/p nephrectomy Status: Chronic Short Stay Discharge Plan Activity: advance as tolerated Weight Bearing Status: Weight Bear as Tolerated Diet: regular Wound: keep clean and dry Follow up with: MIRIAM RODNEY MD [Primary Care Provider] - 7 Days
[2021-09-01 10:58] VITALS: BP 132/69
--- NOTE | 2021-09-01 12:52 | Operative Report ---
Operative Report Operative Report: EXAM: 1. Nephrostogram through the indwelling left nephrostomy tube. 2. Left 8 Ghanaian nephrostomy tube exchange DATE: 09/01/2021 REAL ESTATE AGENCY LICENSEE: LUZ ELENA SCHULTZ MD INDICATION: Rectal cancer and ureteral involvement with permanent left-sided nephrostomy tube with failed ostomy and right nephrectomy. MEDICATIONS: Please see nursing report for full details. DEVICES: 8 Ghanaian nephrostomy tube CONTRAST: Pot Fluxer report for full details. PROCEDURE: The risks, benefits, and alternatives were discussed with the patient; written informed consent was obtained. The patient was brought to the angiography suite in satisfactory condition. The patient was placed in a prone position. The tube was prepped and draped in a sterile fashion. The left nephrostomy tube was evaluated and determined to be intact. The suture was not intact. 1% lidocaine was injected around the nephrostomy tube for local anesthetic. Contrast was injected through the existing nephrostomy tube confirming position. The nephrostomy tube was cut. 0.035 inch The Stakeholder Companyson wire was attempted to be passed through the nephrostomy tube that was unsuccessful. Therefore a 0.035 inch stiff Glidewire was passed into the renal collecting system. The nephrostomy tube was removed over a wire. A new nephrostomy tube was advanced over the wire into the collecting system. The wire and plastic stiffener were removed under fluoroscopic guidance. [place] loop was formed in the renal pelvis. Contrast was injected confirming position in the renal pelvis. Contrast was then aspirated and saline was injected and aspirated through the collecting system. The catheter was secured with a 2-0 Ethilon. Sterile dressing was applied. The patient tolerated the procedure without issue. The patient was transferred to the OPPU area without issue. FINDINGS: 1. The left sided nephrostogram demonstrated mild hydronephrosis. 2. Successful fluoroscopic guided exchange of a left sided 8 Ghanaian nephrostomy tube. IMPRESSION: Successful nephrostogram and nephrostomy tube exchange of a left sided 8 icelandic nephrostomy tube.
== END 2021-09-01 07:19 | disposition home or self-care (01) ==
LOC: CATHLABREC 07:18
PROVIDERS: ATTEND Radiology Diagnostic Radiology
DX: C20 Malignant neoplasm of rectum (principal); N13.2 Hydronephrosis with renal and ureteral calculous obstruction; N99.528 Other complication of incontinent external stoma of urinary tract; I10 Essential (primary) hypertension; E78.00 Pure hypercholesterolemia, unspecified; Z79.899 Other long term (current) drug therapy; Z87.891 Personal history of nicotine dependence; Z90.5 Acquired absence of kidney; Z87.440 Personal history of urinary (tract) infections; Z98.890 Other specified postprocedural states; Z86.2 Personal history of diseases of the blood and blood-forming organs and certain disorders involving the immune mechanism
CPT/HCPCS: 36415; 50435; 80048; 85025; 85610; 85730; C1729; C1769; J1956; J3490; J7040; Q9967

== ENCOUNTER 2022-01-19 07:11 | Day surgery (SDC) | payer MEDICARE, OTHER ==
[2022-01-19 08:04] LABS: Basophils % (Auto) 0.5 % (0.0-1.8); Eosinophils # (Auto) 0.2 K/mm3 (0.0-0.4); Eosinophils % (Auto) 3.7 % (0.0-4.3); Hematocrit 38.4 % (35.5-45.6); Hemoglobin 12.4 gm/dl (11.8-15.2); Lymphocytes # (Auto) 1.2 K/mm3 (1.2-5.4); Lymphocytes % (Auto) 18.5 % (13.4-35.0); Mean Corpuscular HGB Conc 32 % (32-34); Mean Corpuscular Volume 89 fl (84-94); Monocytes # (Auto) 0.6 K/mm3 (0.0-0.8); Platelet Count 216 K/mm3 (140-440); Red Blood Count 4.29 M/mm3 (3.65-5.03); Red Cell Distribution Width 13.8 % (13.2-15.2)
[2022-01-19 08:13] LABS: INR 1.04 (0.87-1.13); Partial Thromboplastin Time 30.9 Sec. (24.2-36.6)
[2022-01-19] MEDS: SODIUM CHLORIDE 0.9% 500 ML 500 ML IV SCH ×2 (08:32→10:36)
[2022-01-19] MEDS ORDERED: LIDOCAINE 2%/EPINEPHRINE 1:200,000 VIAL (20 ML) INFILTRATI ONE (10:34)
[2022-01-19] MEDS ORDERED: HEPARIN/NS 5000 UNIT/500ML 500 ML IR ONE (10:34)
[2022-01-19] MEDS ORDERED: SILVER NITRATE APPLICATOR 1 EA TP ONE ×2 (11:00→11:10)
[2022-01-19 11:33] VITALS: BP 139/77
--- NOTE | 2022-01-19 11:40 | Short Stay Summary ---
Short Stay Documentation Date of service: 01/19/22 Narrative H&P: 71-year-old male with rectal cancer and permanent left-sided nephrostomy tube with failed right lower quadrant ostomy diversion and right nephrectomy who presents for nephrostomy exchange. - History Principal diagnosis: Hydronephrosis Past Medical History: cancer, renal failure (CRI) Past Surgical History: bowel surgery, Other (R nephrectromy) - History Principal diagnosis: Hydronephrosis - Allergies and Medications Current Medications: Allergies No Known Allergies Allergy (Verified 05/11/18 10:05) Home Medications Medication Instructions Recorded Confirmed Last Taken Type Cholecalciferol Vit D3 [Vitamin D3 400 mg PO QDAY 01/18/19 01/19/22 01/18/22 History 1,000 UNIT TAB] Lactobacillus Combo No.10 1 each PO BID 01/18/19 01/19/22 01/18/22 History [Probiotic] amLODIPine 5 mg PO DAILY 01/18/19 01/19/22 01/19/22 History Sodium Bicarbonate 650 mg PO TID 06/10/20 01/19/22 01/18/22 History calcitrioL [Rocaltrol] 0.25 mcg PO BID 11/11/20 01/19/22 01/18/22 History DOXYCYCLINE Hyclate [Vibramycin 100 mg PO Q12HR 7 Days #14 capsule 01/19/22 Unknown Rx CAP] Active Medications Sodium Chloride (Nacl 0.9% 500 Ml) 500 mls @ 50 mls/hr IV DIRECT GRACE Stop: 01/19/22 20:00 Last Admin: 01/19/22 10:36 Dose: 50 mls/hr - Physical exam General appearance: no acute distress Lungs: Normal air movement Gastrointestinal: normal, other (nephrostomy tube with granulation tissue and some surrounding erythema) - Brief post op/procedure progress note Date of procedure: 01/19/22 Pre-op diagnosis: Hydronephrosis Post-op diagnosis: same Procedure: Left nephrostomy tube exchange under fluoroscopic guidance Anesthesia: local Surgeon: LUZ ELENA SCHULTZ Estimated blood loss: minimal Condition: stable - Hospital course Hospital course: The patient tolerated the procedure well. No immediate postprocedural complications. - Disposition Condition at discharge: Stable Disposition: 01 HOME / SELF CARE / HOMELESS - Discharge Diagnoses (1) Complication of Ileal conduit Status: Chronic (2) Hydronephrosis Status: Chronic (3) Rectal cancer Status: Chronic (4) S/p nephrectomy Status: Chronic Short Stay Discharge Plan Activity: advance as tolerated Weight Bearing Status: Weight Bear as Tolerated Diet: regular Wound: keep clean and dry, other (Apply small amount of Betadine daily for 7 d ays, take antibiotics twice a day for 7 days) Follow up with: MIRIAM RODNEY MD [Primary Care Provider] - 7 Days Prescriptions: DOXYCYCLINE Hyclate [Vibramycin CAP] 100 mg PO Q12HR 7 Days #14 capsule
--- NOTE | 2022-01-19 11:43 | Operative Report ---
Operative Report Operative Report: EXAM: 1. Nephrostogram through the indwelling left nephrostomy tube. 2. Left 8 Tristanian nephrostomy tube exchange DATE: 01/19/2022 CANOE MAKER: LUZ ELENA SCHULTZ MD INDICATION: Rectal cancer and ureteral involvement with permanent left-sided nephrostomy tube with failed ostomy and right nephrectomy. MEDICATIONS: Please see nursing report for full details. DEVICES: 8 Tristanian nephrostomy tube CONTRAST: Cheerleading Coach report for full details. PROCEDURE: The risks, benefits, and alternatives were discussed with the patient; written informed consent was obtained. The patient was brought to the angiography suite in satisfactory condition. The patient was placed in a prone position. The tube was prepped and draped in a sterile fashion. The left nephrostomy tube was evaluated and determined to be intact. The suture was not intact. There is a small amount of erythema along the tissue around the nephrostomy tube and granulation tissue at the nephrostomy tube insertion. 1% lidocaine was injected around the nephrostomy tube for local anesthetic. Contrast was injected through the existing nephrostomy tube confirming position. The nephrostomy tube was cut. 0.035 inch [place] wire was attempted to be passed through the nephrostomy tube that was unsuccessful. Therefore a 0.035 inch Glidewire was passed into the renal collecting system. The nephrostomy tube was removed over a wire. A new nephrostomy tube was advanced over the wire into the collecting system. The wire and plastic stiffener were removed under fluoroscopic guidance. [place] loop was formed in the renal pelvis. Contrast was injected confirming position in the renal pelvis. Contrast was then aspirated and saline was injected and aspirated through the collecting system. The catheter was secured with a 2-0 Ethilon. Silver nitrate was then applied to the granulation tissue to perform chemical cauterization. The granulation tissue was cauterized to the skin surface. Sterile dressing was applied. The patient tolerated the procedure without issue. The patient was transferred to the OPPU area without issue. FINDINGS: 1. The left sided nephrostogram demonstrated mild hydronephrosis. 2. Successful fluoroscopic guided exchange of a left sided 8 Tristanian nephrostomy tube. IMPRESSION: Successful nephrostogram and nephrostomy tube exchange of a left sided 8 emir[place] nephrostomy tube.
== END 2022-01-19 12:10 | disposition home or self-care (01) ==
LOC: CATHLABREC 07:11
PROVIDERS: ATTEND Radiology Diagnostic Radiology
DX: C20 Malignant neoplasm of rectum (principal); N13.30 Unspecified hydronephrosis; E78.00 Pure hypercholesterolemia, unspecified; I10 Essential (primary) hypertension; Z85.46 Personal history of malignant neoplasm of prostate; Z85.50 Personal history of malignant neoplasm of unspecified urinary tract organ; Z85.51 Personal history of malignant neoplasm of bladder; Z79.899 Other long term (current) drug therapy; Z87.891 Personal history of nicotine dependence; Z90.5 Acquired absence of kidney; Z87.440 Personal history of urinary (tract) infections; Z86.2 Personal history of diseases of the blood and blood-forming organs and certain disorders involving the immune mechanism
CPT/HCPCS: 36415; 50435; 80048; 85025; 85610; 85730; C1729; C1769; J1644; J1956; J3490; J7040; 50389; 50432; Q9967